=== PATIENT | male | born 1990 | race Caucasian/White ===

== ENCOUNTER 2017-01-06 20:01 | Emergency (ER) | payer BC ==
[2017-01-06 20:56] VITALS: BP 106/64
[2017-01-06] MEDS ORDERED: Ketorolac INJ* 60 MG/2 ML VIAL IM ONE (21:24)
--- NOTE | 2017-01-06 21:47 | RAD ---
INDICATION: RIGHT wrist pain at the base of the thumb without specific proceeding injury. Potential repetitive injury. COMPARISON: None. TECHNIQUE: AP, lateral, and oblique views RIGHT wrist. REPORT: Normal articular alignment and preserved joint spaces. No fracture or osseous lesion evident. Unremarkable soft tissue contours. IMPRESSION: Negative exam.
--- NOTE | 2017-01-06 22:21 | UC ---
Rafael Betts Janilya, scribed for Bianca Brown MD on 01/06/17 at 2128 . Hand/Wrist HPI - HPI Summary HPI Summary: A 26 y/o male came in to [facility] presenting w/ a gradual onset of constant right wrist and right elbow pain for about two and a half weeks. The pain has progressively worsened. Now it feels like pins and needles, and it is hot to touch. Pain radiates up to his shoulders. Pt denies any recent relevant injury. 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 There is mild tingling. Pt used ibuprofen with no relief. PMHx intestinal worm (ascaris lumbricoides) 2 years ago. FHx cancer - father. - History Of Current Complaint Chief Complaint: UCUpperExtremity Stated Complaint: ARM AND HAND PAIN Time Seen by Provider: 01/06/17 21:20 Hx Obtained From: Patient, Family/Dietitian Teaching - Onset/Duration: Gradual Onset, Lasting Days, Still Present Severity Initially: Moderate Severity Currently: Moderate Pain Intensity: 6 Pain Scale Used: 0-10 Numeric Character Of Pain: Sharp, Burning Aggravating Factor(s): Movement Alleviating: Nothing Associated Signs And Symptoms: Positive: Swelling Related History: Dominant Hand Right - Allergies/Home Medications Allergies/Adverse Reactions: Allergies Allergy/AdvReac Type Severity Reaction Status Date / Time No Known Allergies Allergy Verified 01/06/17 20:56 PMH/Surg Hx/FS Hx/Imm Hx Previously Healthy: Yes - Surgical History Surgical History: None - Family History Known Family History: Positive: Other - cancer - father - Social History Occupation: Employed Full-time Lives: With Family Alcohol Use: Occasionally Substance Use Type: None Smoking Status (MU): Never Smoked Tobacco Review of Systems Constitutional: Negative Skin: Negative Eyes: Negative ENT: Negative Respiratory: Negative Cardiovascular: Negative Gastrointestinal: Negative Genitourinary: Negative Motor: Negative Neurovascular: Negative Musculoskeletal: Edema - right wrist, Other: - right hand and right elbow pain Neurological: Other - mild tingling in right hand Psychological: Negative All Other Systems Reviewed And Are Negative: Yes Physical Exam Triage Information Reviewed: Yes Appearance: Well-Appearing, Well-Nourished, Pain Distress Vital Signs: Initial Vital Signs Temp 98.7 F 01/06/17 20:48 Pulse 69 01/06/17 20:48 Resp 20 01/06/17 20:48 BP 106/64 01/06/17 20:48 Pulse Ox 99 01/06/17 20:48 Vital Signs Reviewed: Yes Eyes: Positive: Conjunctiva Clear ENT: Positive: Normal ENT inspection Neck: Positive: Supple Respiratory: Positive: No respiratory distress Cardiovascular: Positive: RRR, Pulses Normal, Brisk Capillary Refill Musculoskeletal: Positive: Other: - Tenderness in dorsal right hand, right olecranon, top of his right shoulder as well as left shoulder. Negative Tinel' s. Negative Phalen's. No snuff box tenderness. Neurological: Positive: Alert, Muscle Tone Normal Psychological Exam: Normal Skin Exam: Normal Diagnostics - Radiology wrist xray Xray Interpretation: No Acute Changes - IMPRESSION: Neg exam Radiology Interpretation Completed By: Radiologist Hand/Wrist Course/Dx - Differential Dx/Diagnosis Differential Diagnosis/HQI/PQRI: Carpal Tunnel Syndrome, Gout, Tendonitis, Tenosynovitis Provider Diagnoses: Carpal tunnel syndrome right wrist Discharge - Discharge Plan Condition: Stable Disposition: HOME Prescriptions: Meloxicam [Mobic] 7.5 mg PO DAILY #20 tab Patient Education Materials: Carpal Tunnel Syndrome Exercises (GEN), Carpal Tunnel Syndrome (ED) Referrals: Deepak Andre MD [Medical Doctor] - 7 Days No Primary Care Phys,NOPCP [Primary Care Provider] - The documentation as recorded by the Rafael bruce Janilya accurately reflects the service I personally performed and the decisions made by , Bianca Brown MD.
== END 2017-01-06 21:56 | disposition home or self-care (01) ==
LOC: UCEAST 20:01
DX: G56.01 Carpal tunnel syndrome, right upper limb (principal)
CPT/HCPCS: 96372; 99212; G0463; J1885

== ENCOUNTER 2018-03-21 09:19 | Emergency (ER) | payer SELFPAY ==
[2018-03-21] MEDS ORDERED: Tetan/Diph/Pertus SYR(Tdap)* 0.5 ML SYR(BOOSTRIX) use SYR IM ONE (09:43)
[2018-03-21 10:46] VITALS: BP 127/61
--- NOTE | 2018-03-21 16:20 | ED ---
- HPI Summary HPI Summary: Patient is a 27-year-old male who presents emergency department for a possible body fluid exposure that occurred just prior to arrival. 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 Patient states a piece of plastic broke her back and cut patient's left mid leg. Patient is unsure of content of a garbage bag. Symptoms are mild in severity. Source patient is known. Patient has no past medical history. States his tetanus immunization is up-to-date. No current modifying factors. Fully vaccinated. - History of Current Complaint Chief Complaint: EDExposureBodyFluid Stated Complaint: EXPOSURE Time Seen by Provider: 03/21/18 09:34 PMH/Surg Hx/FS Hx/Imm Hx Previously Healthy: Yes Endocrine/Hematology History: Denies: Hx Diabetes, Hx Thyroid Disease Cardiovascular History: Denies: Hx Hypertension Respiratory History: Denies: Hx Asthma, Hx Chronic Obstructive Pulmonary Disease (COPD) GI History: Denies: Hx Ulcer Infectious Disease History: No Infectious Disease History: Denies: Hx Hepatitis, Hx Human Immunodeficiency Virus (HIV), Traveled Outside the in Last 30 Days - Family History Known Family History: Positive: Other - cancer - father - Social History Occupation: Employed Full-time Lives: With Family Alcohol Use: Occasionally Substance Use Type: Reports: None Smoking Status (MU): Never Smoked Tobacco Review of Systems Positive: Other - Abrasion to left mid leg All Other Systems Reviewed And Are Negative: Yes Physical Exam Triage Information Reviewed: Yes Vital Signs On Initial Exam: Initial Vitals Temp Pulse Resp BP Pulse Ox 97.6 F 83 16 114/72 96 03/21/18 09:21 03/21/18 09:21 03/21/18 09:21 03/21/18 09:21 03/21/18 09:21 Vital Signs Reviewed: Yes Appearance: Positive: Well-Appearing - Pt. sitting on bed in NAD. Skin: Positive: Warm, Dry, Other - 2 cm superficial abrasion noted to left medial knee. Head/Face: Positive: Normal Head/Face Inspection Eyes: Positive: Normal, GARRISON Neck: Positive: Supple Neurological: Positive: Normal, CN Intact II-III Psychiatric: Positive: Normal Diagnostics - Vital Signs Vital Signs Temp Pulse Resp BP Pulse Ox 03/21/18 10:43 97.6 F 86 17 127/61 96 03/21/18 09:21 97.6 F 83 16 114/72 96 - Laboratory Lab Results: Lab Results 03/21/18 Range/Units 10:08 Hepatitis B Antibody Not immune A (Immune) Hep Bs Antigen Nonreactive (Nonreactive) Hep Bs Antibody, Quant < 3.10 (>12) mIU/mL Hepatitis C Antibody Nonreactive (Nonreactive) HIV 1&2 Antibody Rapid Pending Lab Statement: Any lab studies that have been ordered have been reviewed, and results considered in the medical decision making process. Needlestick Course/Dx - Course Course Of Treatment: Patient presenting to the ER for possible body fluid exposure. Exposure is extremely low risk. Patient declined prophylactic treatment. Protocol blood work was ordered. Blood work is being ordered on the source patient by attending. Patient will follow-up with [facility]. - Diagnoses Provider Diagnoses: Exposure to blood or body fluid Discharge - Sign-Out/Discharge Documenting (check all that apply): Discharge/Admit/Transfer - Discharge Plan Condition: Good Disposition: HOME Patient Education Materials: Body Substance Exposure (ED) Referrals: No Primary Care Phys,NOPCP [Primary Care Provider] - Additional Instructions: Schedule a follow up with employee health Keep wound clean and dry Return to ER if symptoms change or worsen - Billing Disposition and Condition Condition: GOOD Disposition: HOME
== END 2018-03-21 10:43 | disposition home or self-care (01) ==
LOC: ED 09:19
DX: Z77.21 Contact with and (suspected) exposure to potentially hazardous body fluids (principal); S80.812A Abrasion, left lower leg, initial encounter; W45.8XXA Other foreign body or object entering through skin, initial encounter; Y93.89 Activity, other specified; Y92.234 Operating room of hospital as the place of occurrence of the external cause; Z28.20 Immunization not carried out because of patient decision for unspecified reason
CPT/HCPCS: 36415; 86703; 86706; 86803; 87340; 90471; 90715; 99282

== ENCOUNTER 2019-08-17 09:39 | Emergency (ER) | payer BC ==
--- NOTE | 2019-08-17 10:18 | UC ---
Throat Pain/Nasal Ross HPI - HPI Summary HPI Summary: 29 yo male presents with sore throat and body aches. He tells me that for the past week he has had 1 week of a sore throat and the last 3-4 with body aches and a dry cough. He has not been taking anything OTC for his symptoms. Denies fever, chills, rash, sinus symptoms, sob. - History of Current Complaint Stated Complaint: THROAT PAIN Time Seen by Provider: 08/17/19 10:17 Hx Obtained From: Patient Onset/Duration: Sudden Onset Severity: Mild Pain Intensity: 3 Pain Scale Used: 0-10 Numeric - Allergies/Home Medications Allergies/Adverse Reactions: Allergies Allergy/AdvReac Type Severity Reaction Status Date / Time No Known Allergies Allergy Verified 08/17/19 10:39 PMH/Surg Hx/FS Hx/Imm Hx - Additional Past Medical History Additional PMH: None - Surgical History Surgical History: None - Family History Known Family History: Positive: Other - cancer - father - Social History Occupation: Employed Full-time Lives: With Family Alcohol Use: Occasionally Substance Use Type: None Smoking Status (MU): Never Smoked Tobacco Review of Systems All Other Systems Reviewed And Are Negative: No Constitutional: Positive: Other - Body aches Skin: Positive: Negative Eyes: Positive: Negative ENT: Positive: Sore Throat Respiratory: Positive: Negative Cardiovascular: Positive: Negative Gastrointestinal: Positive: Negative Neurovascular: Positive: Negative Neurological: Positive: Negative Psychological: Positive: Negative Physical Exam - Summary Physical Exam Summary: GENERAL: NAD. WDWN. No pain distress. SKIN: No rashes, sores, lesions, or open wounds. HEENT: Head: AT/NC Eyes: EOM intact. Conjunctiva clear without inflammation or discharge. Ears: Hearing grossly normal. TMs intact, no bulging, erythema, or edema. Nose: Nasal mucosa pink and moist. NTTP maxillary and frontal sinus. Throat: Posterior oropharynx without exudates, erythema, or tonsillar enlargement. Uvula midline. NECK: Supple. Nontender. No lymphadenopathy. CHEST: CTAB. No accessory muscle use. Breathing comfortably and in no distress. CV: RRR. Pulses intact. Cap refill <2seconds NEURO: Alert. PSYCH: Age appropriate behavior. Triage Information Reviewed: Yes Vital Signs: Vital Signs: Temp Pulse Resp BP Pulse Ox 97.1 F 84 18 120/71 98 08/17/19 10:20 08/17/19 10:20 08/17/19 10:20 08/17/19 10:20 08/17/19 10:20 Laboratory Tests 08/17/19 10:30 Group A Strep Rapid Negative Vital Signs Reviewed: Yes Throat Pain/Nasal Course/Dx - Course Course Of Treatment: POC strep negative. Exam WNL. Suspect viral illness. Will rx for OTC medications for symptomatic tx and advised to f/u if symptoms do not improve - Differential Dx/Diagnosis Provider Diagnosis: Sore throat Discharge ED - Sign-Out/Discharge Documenting (check all that apply): Patient Departure All imaging exams completed and their final reports reviewed: No Studies - Discharge Plan Condition: Stable Disposition: HOME Prescriptions: Benzonatate CAP* [Tessalon 100 MG CAP*] 100 mg PO TID PRN #21 cap PRN Reason: Cough guaiFENesin ER TAB [Mucinex*] 600 mg PO BID #14 tab.er Loratadine [Claritin] 10 mg PO DAILY #10 tablet Patient Education Materials: Viral Syndrome (ED) Forms: *Work Release Referrals: No Primary Care Phys,NOPCP [Primary Care Provider] - Additional Instructions: Your symptoms are likely from a viral infection. Viral infections do not respond to antibiotics and are limited to the treatment of symptoms. Viral infections typically run their course in 7-10 days. Drink plenty of fluids to avoid dehydration especially if you are running any fever. Use salt water gargles several times a day. Take over the counter acetaminophen (Tylenol) or ibuprofen (Advil, Motrin) according to directions as needed for pain or fever. You may also use Chloraseptic spray or Cepacol lonzenges according to directions which contain a numbing medication and can provide some temporary relief from your sore throat. Return here or follow up with your primary care provider in 7 days if symptoms persist. - Billing Disposition and Condition Condition: STABLE Disposition: Home
[2019-08-17 10:26] VITALS: BP 120/71
== END 2019-08-17 10:47 | disposition home or self-care (01) ==
LOC: UCEAST 09:39
DX: J02.9 Acute pharyngitis, unspecified (principal)
CPT/HCPCS: 87651; 99212; G0463